=== PATIENT | female | born 1965 | race Hispanic/Latino ===

== ENCOUNTER 2018-04-26 15:30 | Emergency (ER) | payer MEDICAID ==
[2018-04-26 17:44] VITALS: BP 118/78; PULSE 54; RESP 18; TEMP 98.4; O2SAT 99
[2018-04-26] MEDS ORDERED: Albuterol-Ipratrop 3 mg / 0.5 (3 ml) UD INH STA (18:51)
--- NOTE | 2018-04-26 18:52 | ED PDOC ---
HPI: Influenza Time Seen by Provider: 04/26/18 17:56 Chief Complaint: Cough, Cold, Congestion Chief Complaint (Provider): Cough, wheezing, congestion History Per: Patient Exam Limitations: no limitations Symptoms include: cough, nasal congestion. denies: fever Additional complaint(s):: 52 year old female presents to the ED complaining of cough associated with wheezing and congestion for 1 week without dyspnea. Denies fever. Patient reports she otherwise feels okay and is tolerating PO. 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 PMD: none Past Medical History Reviewed: Historical Data, Nursing Documentation, Vital Signs Vital Signs: Last Vital Signs Temp 98.4 F 04/26/18 17:40 Pulse 54 L 04/26/18 17:40 Resp 18 04/26/18 17:40 BP 118/78 04/26/18 17:40 Pulse Ox 99 04/26/18 17:40 - Medical History PMH: Asthma - Surgical History Surgical History: No Surg Hx - Family History Family History: States: Unknown Family Hx - Home Medications Home Medications: Ambulatory Orders Medication Instructions Recorded Azithromycin [Zithromax] 250 mg PO DAILY #6 tab 04/26/18 RX: Albuterol HFA [Ventolin HFA 90 2 puff IH [id number] #1 puff 04/26/18 mcg/actuation (8 g)] predniSONE [Prednisone] 20 mg PO DAILY #12 tab 04/26/18 - Allergies Allergies/Adverse Reactions: Allergies Allergy/AdvReac Type Severity Reaction Status Date / Time Penicillins Allergy ANAPHYLAXIS Verified 04/26/18 17:39 Review of Systems ROS Statement: Except As Marked, All Systems Reviewed And Found Negative Constitutional: Negative for: Fever ENT: Positive for: Nose Congestion Respiratory: Positive for: Cough, Wheezing Physical Exam - Reviewed Nursing Documentation Reviewed: Yes Vital Signs Reviewed: Yes - Physical Exam Appears: Positive for: Non-toxic, No Acute Distress Head Exam: Positive for: ATRAUMATIC, NORMOCEPHALIC Skin: Positive for: Normal Color, Warm, Dry Eye Exam: Positive for: Normal appearance Neck: Positive for: Normal, Painless ROM Cardiovascular/Chest: Positive for: Regular Rate, Rhythm Respiratory: Positive for: Wheezing (diffuse bilateral wheezing) Extremity: Positive for: Normal ROM Neurologic/Psych: Positive for: Alert, Oriented. Negative for: Motor/Sensory Deficits Medical Decision Making Medical Decision Making: Initial Plan: --Chest X-ray --Albuterol 3mL INH --Prednisone 60mg PO --Peak flow --Influenza A B stat Cxr: no infiltrate Flu: neg. Pt .observed x 2 hrs. Reassessment, pt. feeling much better. Re-exam, lungs clear, pulse ox: 99% on RA, no distress. Rx: albuterol, prednisone, zithro Scribe Attestation: Documented by Jewel Platt acting as a scribe for Taina ALANIS. Provider Scribe Attestation: All medical record entries made by the Scribe were at my direction and personally dictated by me. I have reviewed the chart and agree that the record accurately reflects my personal performance of the history, physical exam, medical decision making, and the department course for this patient. I have also personally directed, reviewed, and agree with the discharge instructions and disposition. - ECG O2 Sat by Pulse Oximetry: 99 (RA) Pulse Ox Interpretation: Normal Disposition - Clinical Impression Clinical Impression: Asthmatic bronchitis, Bronchitis - Disposition Referrals: [facility] [Outside] Disposition Time: 22:20 Condition: STABLE Prescriptions: RX: Albuterol HFA [Ventolin HFA 90 mcg/actuation (8 g)] 2 puff IH [id number] #1 puff Azithromycin [Zithromax] 250 mg PO DAILY #6 tab predniSONE [Prednisone] 20 mg PO DAILY #12 tab Instructions: Asthma, Adult (DC) Forms: [employer] (Tunisian)
[2018-04-26] MEDS ORDERED: Albuterol-Ipratrop 3 mg / 0.5 (3 ml) UD ONE (19:04)
--- NOTE | 2018-04-27 09:12 | RAD ---
Date of service: 04/26/2018 HISTORY: cough COMPARISON: No prior. TECHNIQUE: Chest PA and lateral FINDINGS: LUNGS: No active pulmonary disease. PLEURA: No significant pleural effusion identified. No pneumothorax apparent. CARDIOVASCULAR: No aortic atherosclerotic calcification present. Normal cardiac size. No pulmonary vascular congestion. OSSEOUS STRUCTURES: No significant abnormalities. VISUALIZED UPPER ABDOMEN: Normal. OTHER FINDINGS: None. IMPRESSION: No fracture identified left rib series. Stable nonacute chest radiography.
== END 2018-04-26 21:04 | disposition home or self-care (01) ==
LOC: H.ER 15:30
DX: J40 Bronchitis, not specified as acute or chronic (principal); J45.909 Unspecified asthma, uncomplicated; Z79.899 Other long term (current) drug therapy; Z88.0 Allergy status to penicillin

== ENCOUNTER 2018-08-16 12:31 | Emergency (ER) | payer MEDICAID ==
[2018-08-16 12:45] VITALS: BP 121/74; PULSE 85; RESP 16; TEMP 96; O2SAT 98
--- NOTE | 2018-08-16 13:47 | ED PDOC ---
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 Pt reports she has had multiple surgeries on both hands, the last being in 2017 in [place] for similar pain. She smokes medical marijuana for the pain which helps, but the pain is so bad when she does not. She reports any movement of hand or daily activities cause pain. Pt is asking for help to get surgery again for her hands. Pt denies taking any other medications for pain as she is allergic to Tylenol and Advil. Denies injury or trauma, redness or swelling. Denies suicidal ideations, thoughts, plans, homicidal ideations, visual or auditory hallucinations Past Medical History Reviewed: Historical Data, Nursing Documentation, Vital Signs Vital Signs: Last Vital Signs Temp 96.0 F L 08/16/18 12:40 Pulse 85 08/16/18 12:40 Resp 16 08/16/18 12:40 BP 121/74 08/16/18 12:40 Pulse Ox 98 08/16/18 12:40 - Medical History PMH: Asthma - Surgical History Surgical History: Other surgeries: multiple bilateral hand surgeries - Family History Family History: States: Unknown Family Hx - Social History Current smoker - smoking cessation education provided: Yes Alcohol: None Drugs: Cannabis (daily) - Home Medications Home Medications: Ambulatory Orders Medication Instructions Recorded Albuterol HFA [Ventolin HFA 90 2 puff IH [id number] #1 puff 04/26/18 mcg/actuation (8 g)] Azithromycin [Zithromax] 250 mg PO DAILY #6 tab 04/26/18 predniSONE [Prednisone] 20 mg PO DAILY #12 tab 04/26/18 traMADol [Ultram] 50 mg PO TID PRN #12 tab 08/16/18 - Allergies Allergies/Adverse Reactions: Allergies Allergy/AdvReac Type Severity Reaction Status Date / Time acetaminophen [From Tylenol] Allergy SWELLING Verified 08/16/18 13:55 diphenhydramine Allergy SWELLING Verified 08/16/18 13:55 [From Advil PM] ibuprofen [From Advil PM] Allergy SWELLING Verified 08/16/18 13:55 Penicillins Allergy ANAPHYLAXIS Verified 08/16/18 12:40 Review of Systems Constitutional: Negative for: Fever, Chills Musculoskeletal: Positive for: Hand Pain. Negative for: Back Pain, Leg Pain Skin: Negative for: Rash, Lesions Neurological: Negative for: Weakness, Numbness Physical Exam - Reviewed Nursing Documentation Reviewed: Yes Vital Signs Reviewed: Yes - Physical Exam Comments: GENERAL APPEARANCE: Patient is awake, alert, oriented x 3, in no acute distress. Pt doing sign language with hands/fingers and no obvious pain SKIN: Warm, dry; (-) cyanosis. CHEST AND RESPIRATORY: (-) chest wall tenderness. Lungs: (-) rales, (-) rhonchi, (-) wheezes; breath sounds equal bilaterally. HEART AND CARDIOVASCULAR: (-) irregularity; (-) murmur, (-) gallop. EXTREMITIES: pulses +2, capillary refill <2sec, no swelling or deformity, NVI; Bilateral hands: (+) multiple well healed scars by thumb and base of fingers from surgery (+)FROM of all digits (-) swelling, erythema, deformity (+) reported tenderness to palpation of diffuse fingers (+) good hand sfdc developer strength bilaterally NEURO AND PSYCH: Mental status as above. - ECG O2 Sat by Pulse Oximetry: 98 Medical Decision Making Medical Decision Makin:25 initial eval pt with chronic bilateral hand pain, h/o of surgeries for tendinitis Pt has documents with her from [facility] and hand surgeon from 2017 doing dequeverian release surgery Pt reports same pain as previous, worse with certain movements, likely tenditis [place] [employer] Rx search done, no results for pt in [place], [place], [place] Pt allergic to Tylenol and Ibuprofen, will give Tramadol for pain, discussed with pt that she cannot drink, drive, smoke marijuana when taking, will provide hand surgeon information Discussed diagnosis, treatment, return precautions and f/u with pt who is understanding, in agreemetn and stable for dc Disposition - Clinical Impression Clinical Impression: Tendinitis of both hands - Patient ED Disposition Is Patient to be Admitted: No Counseled Patient/Family Regarding: Studies Performed, Diagnosis, Need For Followup, Rx Given - Disposition Referrals: Stan Mukherjee MD [Medical Doctor] - Disposition: Routine/Home Disposition Time: 13:47 Condition: STABLE Additional Instructions: The emergency medical care you received today was directed at your acute symptoms. If you were prescribed any medication, please fill it and take as directed. Do not drive, drink alcohol, mix with other drugs or operate heavy machinery when taking tramadol. It may take several days for your symptoms to resolve. Return to the Emergency Department if your symptoms worsen, do not improve, or if you have any other problems. Please contact your doctor in 2 days for re-evaluation and follow up / or call one of the physicians/clinics you have been referred to that are listed on the Patient Visit Information form that is included in your discharge packet. Bring any paperwork you were given at discharge with you along with any medications you are taking to your follow up visit. Our treatment cannot replace ongoing med ical care by a primary care provider (PCP) outside of the emergency department. Prescriptions: traMADol [Ultram] 50 mg PO TID PRN #12 tab PRN Reason: Pain, Severe (8-10) Instructions: Tendonitis (DC), Active Range of Motion Exercises, Arms and Hands, Passive Range of Motion Exercises, Arms and Hands, Hand and Finger Exercises Print Language: SYRIAC - POA Present On Arrival: None
== END 2018-08-16 14:04 | disposition home or self-care (01) ==
LOC: H.ER 12:31
DX: M77.9 Enthesopathy, unspecified (principal); F17.200 Nicotine dependence, unspecified, uncomplicated; J45.909 Unspecified asthma, uncomplicated; Z88.0 Allergy status to penicillin; Z88.6 Allergy status to analgesic agent